=== PATIENT | female | born 1970 | race Caucasian/White ===

== ENCOUNTER 2023-01-27 13:35 | Emergency (ER) | payer BC, OTHER ==
[~2023-01-27] VITALS: Ht 157.5 cm; Wt 97.5 kg
[2023-01-27] MEDS ORDERED: ACETAMINOPHEN ES 500 MG TABLET ONE (13:43)
[2023-01-27] MEDS ORDERED: ACETAMINOPHEN ES 500 MG TABLET PO ONE (13:45)
[2023-01-27] MEDS ORDERED: AMLO2.5T4 PO (13:51)
[2023-01-27] MEDS ORDERED: TRAZ-182 PO (13:51)
[2023-01-27 15:01] VITALS: BP 139/93; O2SAT 99
== END 2023-01-27 15:03 | disposition home or self-care (01) ==
LOC: ER 13:35
DX: S82.832A Other fracture of upper and lower end of left fibula, initial encounter for closed fracture (principal); Z79.899 Other long term (current) drug therapy; X50.1XXA Overexertion from prolonged static or awkward postures, initial encounter; Y93.89 Activity, other specified; Y92.89 Other specified places as the place of occurrence of the external cause; Y99.8 Other external cause status
CPT/HCPCS: 73610; A4606; A4663; A9150